=== PATIENT | male | born 1970 | race Caucasian/White ===

== ENCOUNTER 2019-05-05 02:40 | Emergency (ER) | payer OTHER, SELFPAY ==
[2019-05-05] VITALS (7 sets, daily range): BP systolic 121–158; BP diastolic 69–101; PULSE 50–64; RESP 16–20; TEMP 36.5–36.9; O2SAT 99–100; BMI 46.5
--- NOTE | 2019-05-05 03:01 | ED.ABDPAIN ---
HPI - Abdominal Pain <Azalia Vázquez DO - Last Filed: 05/05/19 18:29> General Chief Complaint: Abdominal Pain Stated Complaint: has diverticulitis, stomach pain Time Seen by Provider: 05/05/19 03:01 Source: patient Mode of arrival: Ambulatory Limitations: no limitations History of Present Illness HPI narrative: 48-year-old male comes to the emergency department complaint of left lower quadrant pain. Patient states that he has had similar pain remotely in the past when he had diverticulitis. He states the pain started , there was just a short period of pain in the resolved in over the weekend it became gradually more intense and constant. He has not had fevers, he did have some nausea and vomiting about an hour prior to arrival. He has not had any diarrhea or constipation. He has had a bowel movement. No melena or bright red blood. He has not had any changes with urination, no frequency urgency or dysuria. No hematuria. Patient has had bilateral inguinal hernia repairs, he has had an appendectomy. He does smoke daily about a half pack daily and states that he has up to 8 drinks daily, he denies any illicit or street drugs. He denies any other medical issues. He is currently on clindamycin in anticipation of having some dental work done. Related Data Previous Rx's Medication Instructions Recorded clindamycin HCl 150 mg PO Q6H #28 cap 03/25/16 hydrocodone-acetaminophen [[place]] 1 tab PO Q6H PRN #10 tab 05/05/19 levofloxacin [Levaquin] 750 mg PO DAILY #21 tab 05/05/19 Allergies Allergy/AdvReac Type Severity Reaction Status Date / Time No Known Drug Allergies Allergy Verified 05/05/19 03:24 Review of Systems <Azalia Vázquez DO - Last Filed: 05/05/19 18:29> Review of Systems ROS Unobtainable: All systems reviewed & are unremarkable except as noted in HPI and below Patient History <Azalia Vázquez DO - Last Filed: 05/05/19 18:29> Surgical History (Updated 05/05/19 @ 03:27 by Azalia Vázquez DO) H/O hernia repair (Acute) Hx of appendectomy (Acute) Social History Smoking Status: Current every day smoker tobacco type: cigarettes alcohol intake frequency: 3 or more drinks per day Alcohol type: beer Substance Use Type: does not use Exam <Azalia Vázquez DO - Last Filed: 05/05/19 18:29> Narrative Exam Narrative: GENERAL: Alert and oriented x three, thin male in mild distress. HEENT: Head normocephalic, atraumatic, EOMI, pupils reactive, face symmetric, moist mucous membranes NECK: Supple, full range of motion CARDIOVASCULAR: Regular rate and rhythm without murmurs, rubs or gallops. RESPIRATORY: Breath sounds equal bilaterally, no wheezes rales or rhonchi. ABDOMEN: Soft, positive for left lower quadrant tenderness. Nondistended. Normoactive bowel sounds all 4 quadrants. No guarding or rebound, rigidity, no mass. No inguinal hernia noted on the left. No mass or bulge. : No CVA tenderness EXTREMITIES: Normal range of motion.. Neurovascularly intact NEUROLOGICAL: Cranial nerves II through XII grossly intact. Moving all extremities SKIN: Warm, dry, no petechiae, no rashes or lesions. Initial Vital Signs Initial Vital Signs: Vital Signs Temperature 97.7 F 05/05/19 02:49 Pulse Rate 50 L 05/05/19 02:49 Respiratory Rate 20 05/05/19 02:49 Blood Pressure 158/101 H 05/05/19 02:49 Pulse Oximetry 100 05/05/19 02:49 <Harvinder Will DO - Last Filed: 05/05/19 08:12> Initial Vital Signs Initial Vital Signs: Vital Signs Temperature 97.7 F 05/05/19 02:49 Pulse Rate 50 L 05/05/19 02:49 Respiratory Rate 20 05/05/19 02:49 Blood Pressure 158/101 H 05/05/19 02:49 Pulse Oximetry 100 05/05/19 02:49 Course <Azalia Vázquez DO - Last Filed: 05/05/19 18:29> Orders Ordered: Discontinued Medications Hydrocodone Bitart/Acetaminophen ([place] 5/325) 2 tab PO NOW ONE Stop: 05/05/19 06:57 Last Admin: 05/05/19 06:59 Dose: 2 tab Documented by: KEYONNA Sodium Chloride (Normal Saline 0.9%) 1,000 mls @ 1,000 mls/hr IV BOLUS ONE Stop: 05/05/19 04:06 Last Infusion: 05/05/19 06:35 Dose: 0 mls/hr Documented by: Admin: 05/05/19 03:10 Dose: 1,000 mls/hr Documented by: KEYONNA Levofloxacin (Levaquin) 750 mg in 150 mls @ 100 mls/hr IV NOW ONE Stop: 05/05/19 07:44 Last Infusion: 05/05/19 08:06 Dose: 0 mls/hr Documented by: Admin: 05/05/19 06:30 Dose: 100 mls/hr Documented by: KEYONNA Ketorolac Tromethamine (Toradol) 30 mg IV NOW ONE Stop: 05/05/19 03:08 Last Admin: 05/05/19 03:41 Dose: 30 mg Documented by: KEYONNA Morphine Sulfate (Morphine) 4 mg IV NOW ONE Stop: 05/05/19 04:11 Last Admin: 05/05/19 04:14 Dose: 4 mg Documented by: KEYONNA Ondansetron HCl (Zofran) 4 mg IV NOW ONE Stop: 05/05/19 03:17 Last Admin: 05/05/19 03:42 Dose: 4 mg Documented by: KEYONNA Vital Signs Vital signs: Vital Signs - 8 hr 05/05/19 02:49 05/05/19 03:30 05/05/19 05:30 Temperature 97.7 F Pulse Rate 50 L 63 64 Respiratory Rate 20 16 Blood Pressure 158/101 H Blood Pressure [Left Arm] Blood Pressure [Right Arm] 122/70 Pulse Oximetry 100 100 99 05/05/19 06:00 05/05/19 07:02 05/05/19 07:30 Temperature Pulse Rate 60 58 L Respiratory Rate 17 16 17 Blood Pressure Blood Pressure [Left Arm] 121/69 141/98 H Blood Pressure [Right Arm] 143/86 H Pulse Oximetry 99 100 05/05/19 08:07 Temperature 98.4 F Pulse Rate 63 Respiratory Rate 17 Blood Pressure 145/87 H Blood Pressure [Left Arm] Blood Pressure [Right Arm] Pulse Oximetry <Harvinder Will DO - Last Filed: 05/05/19 08:12> Orders Ordered: Discontinued Medications Hydrocodone Bitart/Acetaminophen ([place] 5/325) 2 tab PO NOW ONE Stop: 05/05/19 06:57 Last Admin: 05/05/19 06:59 Dose: 2 tab Documented by: KEYONNA Sodium Chloride (Normal Saline 0.9%) 1,000 mls @ 1,000 mls/hr IV BOLUS ONE Stop: 05/05/19 04:06 Last Infusion: 05/05/19 06:35 Dose: 0 mls/hr Documented by: Admin: 05/05/19 03:10 Dose: 1,000 mls/hr Documented by: KEYONNA Levofloxacin (Levaquin) 750 mg in 150 mls @ 100 mls/hr IV NOW ONE Stop: 05/05/19 07:44 Last Infusion: 05/05/19 08:06 Dose: 0 mls/hr Documented by: Admin: 05/05/19 06:30 Dose: 100 mls/hr Documented by: KEYONNA Ketorolac Tromethamine (Toradol) 30 mg IV NOW ONE Stop: 05/05/19 03:08 Last Admin: 05/05/19 03:41 Dose: 30 mg Documented by: KEYONNA Morphine Sulfate (Morphine) 4 mg IV NOW ONE Stop: 05/05/19 04:11 Last Admin: 05/05/19 04:14 Dose: 4 mg Documented by: KEYONNA Ondansetron HCl (Zofran) 4 mg IV NOW ONE Stop: 05/05/19 03:17 Last Admin: 05/05/19 03:42 Dose: 4 mg Documented by: KEYONNA Vital Signs Vital signs: Vital Signs - 8 hr 05/05/19 02:49 05/05/19 03:30 05/05/19 05:30 Temperature 97.7 F Pulse Rate 50 L 63 64 Respiratory Rate 20 16 Blood Pressure 158/101 H Blood Pressure [Left Arm] Blood Pressure [Right Arm] 122/70 Pulse Oximetry 100 100 99 05/05/19 06:00 05/05/19 07:02 05/05/19 07:30 Temperature Pulse Rate 60 58 L Respiratory Rate 17 16 17 Blood Pressure Blood Pressure [Left Arm] 121/69 141/98 H Blood Pressure [Right Arm] 143/86 H Pulse Oximetry 99 100 05/05/19 08:07 Temperature 98.4 F Pulse Rate 63 Respiratory Rate 17 Blood Pressure 145/87 H Blood Pressure [Left Arm] Blood Pressure [Right Arm] Pulse Oximetry MDM - Abdominal Pain <Azalia Vázquez DO - Last Filed: 05/05/19 18:29> Lab Data Attestation: I reviewed the patient's lab results. Result diagrams: 05/05/19 03:30 05/05/19 03:30 Labs: Lab Results 05/05/19 05/05/19 05/05/19 Range/Units 03:30 03:30 05:42 WBC 11.3 H (4.5-11.0) X10^3/uL RBC 5.32 (4.5-5.9) X10^6/uL Hgb 17.3 (13.5-17.5) g/dL Hct 50.0 (41-53) % MCV 93.9 (80-100) fL MCH 32.5 (26-34) PG MCHC 34.6 (30-36) % RDW 12.8 (11.6-14.8) % Plt Count 288 (150-400) X10^3/uL Neut % (Auto) 74.8 (50-75) % Lymph % (Auto) 14.7 L (25-40) % [place] % (Auto) 7.2 (3-14) % Eos % (Auto) 2.5 (2-4) % Baso % (Auto) 0.8 (0-2) % Neut # (Auto) 8400 H (9950-0397) /uL Lymph # (Auto) 1700 (9802-3232) /uL [place] # (Auto) 800 (0-900) /uL Eos # (Auto) 300 (0-450) /uL Baso # (Auto) 100 (0-100) /uL Sodium 138 (137-145) mmol/L Potassium 4.6 (3.4-5.1) mmol/L Chloride 100 (98-107) mmol/L Carbon Dioxide 27 (22-32) mmol/L BUN 17 (9-20) mg/dL Creatinine 1.00 (0.66-1.25) mg/dL Estimated GFR > 60.0 (>60) mL/min BUN/Creatinine Ratio 17.0 (6-22) Glucose 103 H (70-100) mg/dL Calcium 10.0 (8.4-10.2) mg/dL Total Bilirubin 0.7 (0.2-1.3) mg/dL AST 29 (17-59) IU/L ALT 24 (21-72) IU/L Alkaline Phosphatase 67 (38-126) U/L Total Protein 8.1 (6.3-8.2) g/dL Albumin 5.0 (3.5-5.0) g/dL Globulin 3.1 (1.7-4.1) g/dL Albumin/Globulin Ratio 1.6 (1.0-2.8) Lipase 48 (23-300) U/L Urine RBC None seen (0-5/HPF) Urine WBC 0-1/hpf (0-5/HPF) Ur Squamous Epith Cells 0-1 /hpf (0-5/HPF) Urine Bacteria Occasional (0-1) (None) Hyaline Casts 1-5/lpf (None) Ur Culture Indicated? Culture not indicate Ur Chlamydia DNA (PCR) N gonorrhoeae DNA (PCR) 05/05/19 Range/Units 07:17 WBC (4.5-11.0) X10^3/uL RBC (4.5-5.9) X10^6/uL Hgb (13.5-17.5) g/dL Hct (41-53) % MCV (80-100) fL MCH (26-34) PG MCHC (30-36) % RDW (11.6-14.8) % Plt Count (150-400) X10^3/uL Neut % (Auto) (50-75) % Lymph % (Auto) (25-40) % [place] % (Auto) (3-14) % Eos % (Auto) (2-4) % Baso % (Auto) (0-2) % Neut # (Auto) (6385-4977) /uL Lymph # (Auto) (9408-1934) /uL [place] # (Auto) (0-900) /uL Eos # (Auto) (0-450) /uL Baso # (Auto) (0-100) /uL Sodium (137-145) mmol/L Potassium (3.4-5.1) mmol/L Chloride (98-107) mmol/L Carbon Dioxide (22-32) mmol/L BUN (9-20) mg/dL Creatinine (0.66-1.25) mg/dL Estimated GFR (>60) mL/min BUN/Creatinine Ratio (6-22) Glucose (70-100) mg/dL Calcium (8.4-10.2) mg/dL Total Bilirubin (0.2-1.3) mg/dL AST (17-59) IU/L ALT (21-72) IU/L Alkaline Phosphatase (38-126) U/L Total Protein (6.3-8.2) g/dL Albumin (3.5-5.0) g/dL Globulin (1.7-4.1) g/dL Albumin/Globulin Ratio (1.0-2.8) Lipase (23-300) U/L Urine RBC (0-5/HPF) Urine WBC (0-5/HPF) Ur Squamous Epith Cells (0-5/HPF) Urine Bacteria (None) Hyaline Casts (None) Ur Culture Indicated? Ur Chlamydia DNA (PCR) Not detected N gonorrhoeae DNA (PCR) Not detected Point of care testing: Urine Dip Bedside Urine Glucose Negative Bedside Urine Bilirubin - Negative Bedside Urine Ketone +/- 5 Urine Specific [place] 1.010 Bedside Urine Occult Blood - Negative Bedside Urine pH 7.0 Bedside Urine Protein +/- 15 Bedside Urine Urobilinogen - Negative Bedside Urine Nitrite - Negative Bedside Urine Leukocytes - Negative Esterase Imaging Data CT abdomen and pelvis: Radiologist's impression: Liver, gallbladder, pancreas, spleen and adrenal glands and right kidney are normal. Decreased enhancement of the lower pole of the left kidney measuring approximately 4.4 x 2.1 cm. No obstructing renal or ureteral calculus is identified. No mesenteric or retroperitoneal lymphadenopathy. No abdominal ascites. Free fluid within the pelvis or bulky pelvic adenopathy. The bladder is unremarkable. The colon and small bowel are normal. The appendix is not visualized. No suspicious lytic or sclerotic osseous lesions identified. Under impression notes that decreased enhancement in lower pole of the left kidney suspicious for acute pyelonephritis, correlate with clinical symptoms and urinalysis. Consider follow-up CT after appropriate treatment. ECG Data Attestation: I personally reviewed and interpreted this ECG as follows: Prior ECG tracings: not available for review Interpretation: Sinus bradycardia with frequent PVCs. rate of 59, pr of 156, qrs of 93, qtc of 437. Patient has ST changes intermittently but not consistently in leads. He does not have prior EKG for comparison. MDM Narrative Medical decision making narrative: Discussed with patient his symptoms do sound consistent with his prior history of diverticulitis, we discussed imaging versus labs and if no major abnormality starting him on antibiotics. Patient is still quite uncomfortable after dose of Toradol. Labs show elevated white count 11.3, neutrophils are 8400. Chemistry shows a glucose of 103 with otherwise normal electrolytes, renal function liver function and lipase. Discussed with patient plan for imaging at this time as he is still quite uncomfortable, he was given a 2nd dose of pain medication and he is much more comfortable at this time. CT shows decreased enhancement of left kidney suspicious per Radiology port for acute pyelonephritis. Patient's urinalysis shows no nitrates, no leuks, + for ketones and protein. micro shows 0-1 wbc, 0-1 squamous, 1-5 hylaline cell casts. Discussed with urology at [facility], . If decreased enhancement he suspect potentially a pyelonephritis that is localized versus possible mass, if there is no enhancement he would be worried about infarct. He would recommend having some additional discussion with Radiology. He states that it also sometimes if the timing is incorrect this can cause changes that look like decreased enhancement although patient's pain location and absence of other findings are suspicious for true pathology. He would probably recommend discussing with radiology has other recommendations for imaging to treat for several weeks for pyelonephritis and then have patient reimaged in 3-4 weeks and to return sooner if his symptoms are not improving in the short term. He would treat for pyelonephritis for [address] Abel, she states that she does not suspected infarct as patient does not have any atherosclerosis and does have decreased enhancement but not no enhancement. Her main suspicion be for pyelonephritis and are less for a mass causing patient's symptoms. She would recommend repeat imaging in 3-4 weeks for evaluation of resolution. Discussed with patient, he does not have primary care but his significant other is going to help him established. He was given contact for Urology [address] as [place] as well as locally and asked to return if he had any worsening symptoms, and it was made clear that he needs repeat imaging even if he is completely asymptomatic. Patient reflex that understanding and understands that were suspecting that he has an infection although his urine does not reflect this on that there are other potential causes including infarction (less likely), mass or other. <Harvinder WillDO - Last Filed: 05/05/19 08:12> Lab Data Labs: Lab Results 05/05/19 05/05/19 05/05/19 Range/Units 03:30 03:30 05:42 WBC 11.3 H (4.5-11.0) X10^3/uL RBC 5.32 (4.5-5.9) X10^6/uL Hgb 17.3 (13.5-17.5) g/dL Hct 50.0 (41-53) % MCV 93.9 (80-100) fL MCH 32.5 (26-34) PG MCHC 34.6 (30-36) % RDW 12.8 (11.6-14.8) % Plt Count 288 (150-400) X10^3/uL Neut % (Auto) 74.8 (50-75) % Lymph % (Auto) 14.7 L (25-40) % [place] % (Auto) 7.2 (3-14) % Eos % (Auto) 2.5 (2-4) % Baso % (Auto) 0.8 (0-2) % Neut # (Auto) 8400 H (4354-6689) /uL Lymph # (Auto) 1700 (6427-5555) /uL [place] # (Auto) 800 (0-900) /uL Eos # (Auto) 300 (0-450) /uL Baso # (Auto) 100 (0-100) /uL Sodium 138 (137-145) mmol/L Potassium 4.6 (3.4-5.1) mmol/L Chloride 100 (98-107) mmol/L Carbon Dioxide 27 (22-32) mmol/L BUN 17 (9-20) mg/dL Creatinine 1.00 (0.66-1.25) mg/dL Estimated GFR > 60.0 (>60) mL/min BUN/Creatinine Ratio 17.0 (6-22) Glucose 103 H (70-100) mg/dL Calcium 10.0 (8.4-10.2) mg/dL Total Bilirubin 0.7 (0.2-1.3) mg/dL AST 29 (17-59) IU/L ALT 24 (21-72) IU/L Alkaline Phosphatase 67 (38-126) U/L Total Protein 8.1 (6.3-8.2) g/dL Albumin 5.0 (3.5-5.0) g/dL Globulin 3.1 (1.7-4.1) g/dL Albumin/Globulin Ratio 1.6 (1.0-2.8) Lipase 48 (23-300) U/L Urine RBC None seen (0-5/HPF) Urine WBC 0-1/hpf (0-5/HPF) Ur Squamous Epith Cells 0-1 /hpf (0-5/HPF) Urine Bacteria Occasional (0-1) (None) Hyaline Casts 1-5/lpf (None) Ur Culture Indicated? Culture not indicate Ur Chlamydia DNA (PCR) N gonorrhoeae DNA (PCR) 05/05/19 Range/Units 07:17 WBC (4.5-11.0) X10^3/uL RBC (4.5-5.9) X10^6/uL Hgb (13.5-17.5) g/dL Hct (41-53) % MCV (80-100) fL MCH (26-34) PG MCHC (30-36) % RDW (11.6-14.8) % Plt Count (150-400) X10^3/uL Neut % (Auto) (50-75) % Lymph % (Auto) (25-40) % [place] % (Auto) (3-14) % Eos % (Auto) (2-4) % Baso % (Auto) (0-2) % Neut # (Auto) (6640-1703) /uL Lymph # (Auto) (6733-6066) /uL [place] # (Auto) (0-900) /uL Eos # (Auto) (0-450) /uL Baso # (Auto) (0-100) /uL Sodium (137-145) mmol/L Potassium (3.4-5.1) mmol/L Chloride (98-107) mmol/L Carbon Dioxide (22-32) mmol/L BUN (9-20) mg/dL Creatinine (0.66-1.25) mg/dL Estimated GFR (>60) mL/min BUN/Creatinine Ratio (6-22) Glucose (70-100) mg/dL Calcium (8.4-10.2) mg/dL Total Bilirubin (0.2-1.3) mg/dL AST (17-59) IU/L ALT (21-72) IU/L Alkaline Phosphatase (38-126) U/L Total Protein (6.3-8.2) g/dL Albumin (3.5-5.0) g/dL Globulin (1.7-4.1) g/dL Albumin/Globulin Ratio (1.0-2.8) Lipase (23-300) U/L Urine RBC (0-5/HPF) Urine WBC (0-5/HPF) Ur Squamous Epith Cells (0-5/HPF) Urine Bacteria (None) Hyaline Casts (None) Ur Culture Indicated? Ur Chlamydia DNA (PCR) Not detected N gonorrhoeae DNA (PCR) Not detected Point of care testing: Urine Dip Bedside Urine Glucose Negative Bedside Urine Bilirubin - Negative Bedside Urine Ketone +/- 5 Urine Specific [place] 1.010 Bedside Urine Occult Blood - Negative Bedside Urine pH 7.0 Bedside Urine Protein +/- 15 Bedside Urine Urobilinogen - Negative Bedside Urine Nitrite - Negative Bedside Urine Leukocytes - Negative Esterase Discharge Plan Departure Patient Disposition: Home Clinical Impression: Pyelonephritis Discharge Date/Time: 05/05/19 08:11 Instructions: DI for Kidney Infection Activity Restrictions/Additional Instructions: Follow up with urology in the next week, call for an appointment. Included is options for Dr. Len Braxton through [facility] whom your case was discussed, you may call [phone] for an appointment. Also included is a local urologist. Your imaging is suspicious for pyelonephritis or a kidney infection, urine does not show signs of infection today but is recommended by urology to treat for the next several weeks with antibiotics and have repeat imaging. It is important to have repeat imaging to verify that there are no other causes of your kidney pain such as mass. Take antibiotics until gone. You may take with your other medications. Take pain medication as prescribed, this medication can make you sleepy do not drive, perform hazardous activities or make any major decisions while taking this medication. You need repeat imaging in the next 3-4 weeks to verify that your changes on CT imaging of your left kidney have resolved. Prescriptions: New hydrocodone-acetaminophen [[place]] 5-325 mg tablet 1 tab PO Q6H PRN (Reason: pain) Qty: 10 RF: 0 levofloxacin [Levaquin] 750 mg tablet 750 mg PO DAILY Qty: 21 RF: 0 No Action clindamycin HCl 150 MG capsule 150 mg PO Q6H Qty: 28 RF: 0 Referrals: Kiah Pina MD [Non-Staff] - <Harvinder Will DO - Last Filed: 05/05/19 08:12> Sign Out Provider Sign Out Attestation: Dr will: Received turned over from night provider. Patient finishing his course of antibiotics. Discharge paperwork and home prescription printed out by night provider. Patient had no issues with the antibiotics. He had follow-up instructions and return precautions. Patient was discharged without incident.
[2019-05-05] MEDS: SODIUM CHLORIDE 0.9% 1,000 ML 1000 ML IV (03:10)
[2019-05-05] MEDS: KETOROLAC 60 MG/2 ML VIAL 30 MG IV (03:41)
[2019-05-05] MEDS: ONDANSETRON 4 MG/2 ML INJ IV (03:42)
[2019-05-05 03:46] LABS: Add Manual Diff / Slide Review NO; Basophils Absolute Auto 100 /uL (0-100); Basophils Percent Auto 0.8 % (0-2); Eosinophils Absolute Auto 300 /uL (0-450); Eosinophils Percent Auto 2.5 % (2-4); Hemoglobin 17.3 g/dL (13.5-17.5); Lymphocytes Absolute Auto 1700 /uL (1100-4500); Lymphocytes Percent Auto 14.7 % (25-40); Mean Corpuscular HGB Conc 34.6 % (30-36); Mean Corpuscular Hemoglobin 32.5 PG (26-34); Mean Corpuscular Volume 93.9 fL (80-100); Monocytes Absolute Auto 800 /uL (0-900); Monocytes Percent Auto 7.2 % (3-14); Neutrophils Absolute Auto 8400 /uL (1500-7000); Neutrophils Percent Auto 74.8 % (50-75); Platelet Count 288 X10^3/uL (150-400); Red Blood Cell Count 5.32 X10^6/uL (4.5-5.9); Red Cell Distribution Width 12.8 % (11.6-14.8); White Blood Cell Count 11.3 X10^3/uL (4.5-11.0)
[2019-05-05 03:54] LABS: Alanine Aminotransferase 24 IU/L (21-72); Albumin Globulin Ratio 1.6 (1.0-2.8); Alkaline Phosphatase 67 U/L (38-126); Aspartate Aminotransferase 29 IU/L (17-59); Bilirubin Total 0.7 mg/dL (0.2-1.3); Blood Urea Nitrogen 17 mg/dL (9-20); Carbon Dioxide 27 mmol/L (22-32); Chloride 100 mmol/L (98-107); Estimated Glomerular Filt Rate > 60.0 mL/min (>60); Globulin 3.1 g/dL (1.7-4.1); Glucose 103 mg/dL (70-100); HEMOLYSIS < 15 (0-50); Lipase 48 U/L (23-300); Potassium 4.6 mmol/L (3.4-5.1); Sodium 138 mmol/L (137-145); Total Protein 8.1 g/dL (6.3-8.2)
--- NOTE | 2019-05-05 04:11 | DI.CT.S_ITS ---
PROCEDURE: CT ABDOMEN PELVIS W CON INDICATIONS: Left lower quadrant pain, history of diverticulitis, history of hernia repair TECHNIQUE: After the administration of intravenous contrast, 5 mm thick sections acquired from the diaphragm to the symphysis. 5 mm coronal and sagittal reformats were acquired. For radiation dose reduction, the following was used: automated exposure control, adjustment of mA and/or kV according to patient size. COMPARISON: None. FINDINGS: Image quality: Excellent. ABDOMEN: Lung bases: Bullous emphysematous change identified over the anteromedial right lung base. Lung bases are otherwise clear. Heart size is normal. Solid organs: Liver is normal in size and enhancement. Gallbladder is unremarkable. Biliary system is non dilated. Pancreas enhances normally. Spleen is normal in size and enhancement. No adrenal nodules. The right kidney demonstrate normal size and enhancement without hydronephrosis or perinephric stranding. There is decreased enhancement involving the lower pole of the left kidney measuring approximately 4.4 x 2.1 cm. No associated left-sided renal stone, obstructing ureteral stone, or hydronephrosis. No substantial perinephric stranding. Peritoneum and bowel: Bowel loops demonstrate normal wall thickness and caliber. No free fluid or air. The appendix is not definitively visualized. However, no secondary findings of acute inflammation are noted in the right lower quadrant. Nodes and vessels: No retroperitoneal or mesenteric adenopathy by size criteria. Aorta and inferior vena cava are normal in size. Miscellaneous: No ventral hernias. PELVIS: Genitourinary: Bladder wall thickness is normal. Miscellaneous: No inguinal hernias or adenopathy. Bones: No suspicious bony lesions. No vertebral body compression fractures. IMPRESSION: Decreased attenuation/enhancement of the lower pole of the left kidney measuring approximately 4.4 x 2.1 cm. Findings are most likely related to infectious etiology with pyelonephritis favored. However, infarction or sequela of trauma not excluded if clinically appropriate. No visible filling defects identified in the left renal artery. Recommend correlation with clinical symptoms and urinalysis. Short interval followup imaging is also recommended. No CT evidence for colitis, diverticulitis, bowel obstruction, or stricture uropathy. The appendix is not visualized but no secondary findings of acute inflammatory changes in the right lower quadrant. No significant discrepancy with the stonemason apprentice radiology preliminary report. Dictated by: Ki Park M.D. on 05/05/2019 at 7:48 Approved by: Ki Park M.D. on 05/05/2019 at 8:03
[2019-05-05] MEDS: MORPHINE 4 MG/ML INJ IV (04:14)
--- NOTE | 2019-05-05 04:15 | PC.NURSE ---
pt reports increasing pain radiating through to back and into his side, provider notified and ordered morphine.
[2019-05-05 05:44] LABS: RBC Urine None Seen (0-5/HPF)
[2019-05-05 05:47] LABS: Bacteria Urine Occasional (0-1); Hyaline Casts Urine 1-5/LPF; Squamous Epithelial Cell Urine 0-1 /HPF (0-5/HPF); WBC Urine 0-1/HPF (0-5/HPF)
[2019-05-05] MEDS: levoFLOXacin 750 MG/150 ML PIGGYBACK 100 MG IV (06:30)
[2019-05-05] MEDS: HYDROCODONE/ACET 5/325 TABLET 2 TAB PO (06:59)
[2019-05-05 08:57] LABS: Urine N gonorrhoeae NOT DETECTED
[2019-05-05 08:58] LABS: Urine Chlamydia NOT DETECTED
== END 2019-05-05 08:11 | disposition home or self-care (01) ==
PROVIDERS: Emergency Medicine; Emergency Provider Emergency Medicine
DX: N12 Tubulo-interstitial nephritis, not specified as acute or chronic (principal); I49.9 Cardiac arrhythmia, unspecified
CPT/HCPCS: 36415; 74177; 80053; 81003; 81015; 83690; 85025; 87086; 87491; 87591; 93005; 96361; 96365; 96366; 96375; 99283; 99285; J1885; J1956; J2270; J2405; Q9967

== ENCOUNTER → 2023-06-08 06:59 | Outpatient (CLI) | payer BC, SELFPAY ==
--- NOTE | 2023-06-08 | DI.RAD.S_ITS ---
PROCEDURE: XR LUMBAR SPINE 2-3V INDICATIONS: BACK PAIN TECHNIQUE: 3 views of the lumbar spine were acquired. COMPARISON: None. FINDINGS: Bones: 5 [id number] vertebrae are present. There is normal bony alignment. No vertebral body compression fractures. No suspicious bony lesions. Mild disc height loss at all levels. Marginal endplate osteophytes present. Soft tissues: Overlying bowel gas pattern is normal. No suspicious soft tissue calcifications. IMPRESSION: Mild disc height loss at all levels. Dictated by: Jaylen Rivera M.D. on 06/08/2023 at 8:05 Approved by: Jaylen Rivera M.D. on 06/08/2023 at 8:06
--- NOTE | 2023-06-08 | DI.RAD.S_ITS ---
PROCEDURE: XR THORACIC SPINE 2V INDICATIONS: BACK PAIN TECHNIQUE: 3 views of the thoracic spine were acquired. COMPARISON: None. FINDINGS: Bones: No fractures or dislocations. No suspicious bony lesions. 12 pairs of ribs are noted, and appear intact where visualized. Soft tissues: No paravertebral stripe thickening. IMPRESSION: No acute bony abnormality. No significant degenerative change. Dictated by: Jaylen Rivera M.D. on 06/08/2023 at 8:06 Approved by: Jaylen Rivera M.D. on 06/08/2023 at 8:07
--- NOTE | 2023-06-08 | DI.RAD.S_ITS ---
PROCEDURE: XR CERVICAL SPINE 2V OR 3V INDICATIONS: BACK PAIN TECHNIQUE: 3 view(s) of the cervical spine were acquired. COMPARISON: None. FINDINGS: Bones: No fractures or dislocations to the T1 level. The lateral masses of C1 appear intact on the odontoid view. No suspicious bony lesions. Mild disc height loss C5-6. Soft tissues: No prevertebral soft tissue swelling. IMPRESSION: Mild disc height loss at C5-6. Dictated by: Jaylen Rivera M.D. on 06/08/2023 at 8:07 Approved by: Jaylen Rivera M.D. on 06/08/2023 at 8:07
== END ==
PROVIDERS: Referring Provider Chiropractor; Visit Provider Chiropractor
DX: M99.01 Segmental and somatic dysfunction of cervical region (principal); M99.02 Segmental and somatic dysfunction of thoracic region; M99.03 Segmental and somatic dysfunction of lumbar region; M99.04 Segmental and somatic dysfunction of sacral region
CPT/HCPCS: 72040; 72070; 72100

== ENCOUNTER → 2025-01-15 11:20 | Outpatient (CLI) | payer BC, SELFPAY ==
--- NOTE | 2025-01-15 11:21 | DI.US.S_ITS ---
PROCEDURE: US HERNIA INDICATIONS: Inguinal hernia. History of bilateral inguinal hernia repair. TECHNIQUE: Real-time focused scanning was performed of the inguinal region, with image documentation. COMPARISON: None. FINDINGS: Recurrent left inguinal hernia containing reducible fat. Abdominal wall defect measures 0.8 x 1.0 cm. IMPRESSION: Recurrent left inguinal hernia containing reducible fat. Dictated by: Chet Christine M.D. on 01/16/2025 at 10:30 Approved by: Chet Christine M.D. on 01/16/2025 at 10:31
== END ==
LOC: US 11:20
PROVIDERS: Referring Provider Nurse Practitioner Family; Visit Provider Nurse Practitioner Family
DX: K40.91 Unilateral inguinal hernia, without obstruction or gangrene, recurrent (principal)
CPT/HCPCS: 76705